=== PATIENT | female | born 1970 | race Caucasian/White ===

== ENCOUNTER 2021-03-03 11:50 | Observation (INO) | payer SELFPAY ==
[2021-03-03 12:27] LABS: #Eosinphils 0.1 10x3/uL (0.0-0.5); #Monocytes 0.5 10x3/uL (0.0-1.1); #Neutrophils 2.9 10x3/uL (1.5-8.4); %Basophils 0.5 % (0.0-2.0); %Eosinophils 1.4 % (0.0-6.0); %Lymphocytes 40.3 % (18.0-47.0); %Monocytes 8.5 % (0.0-10.0); Hemoglobin 15.9 g/dL (12.0-15.5); Mean Corpuscular HGB CONC 32.9 g/dL (32.0-36.0); Mean Corpuscular Hemoglobin 29.4 pg (27.0-33.0); Mean Corpuscular Volume 89.6 fl (81.6-98.3); Mean Platelet Volume 11.5 fl (7.4-10.4); Platelet Count 228 10x3/uL (150-450); RBC Distribution Width 12.7 % (11.5-14.5); White Blood Cell (WBC) Count 5.9 10x3/uL (3.5-10.5)
[2021-03-03 12:40] LABS: ALT (SGPT) 17 U/L (8-55); AST (SGOT) 17 U/L (5-34); Albumin 4.7 g/dL (3.5-5.0); Alkaline Phosphatase 82 U/L (40-110); Anion Gap 14 mmol/L (10-20); BUN (Urea Nitrogen) 8 mg/dL (9.8-20.1); Bilirubin, Total 0.4 mg/dL (0.2-1.2); Calc. Creatinine Clearance 0 mL/min (70-130); Calcium 9.8 mg/dL (7.8-10.44); Carbon Dioxide 26 mmol/L (22-29); Chloride 104 mmol/L (98-107); Globulin 2.9 g/dL (2.4-3.5); Glucose 86 mg/dL (70-105); Potassium 4.2 mmol/L (3.5-5.1); Protein, Total 7.6 g/dL (6.0-8.3); Sodium 140 mmol/L (136-145)
[2021-03-03] MEDS ORDERED: methylPREDNISolone Sod Succ/PF 125 MG/2 ML VIAL ONE (12:58)
[2021-03-03 13:34] LABS: Actual Bicarbonate (HCO3v) 27 mEq/L (22-28); Base Excess 0.3 mEq/L (-2.0 to +3.0); Calcium, Ionized (venous) 1.19 mmol/L (1.16-1.32); Chloride (VBG) 102 mmol/L (98-106); Hemoglobin (Hb) 16.2 g/dL (11.7-16.0); Potassium (VBG) 4.09 mmol/L (3.70-5.30); Puncture Site Other Site; Sodium 140.4 mmol/L (133-146); pH (venous) 7.35 (7.32-7.43)
[2021-03-03 13:44] LABS: SARS-CoV-2 NAA Rapid Test Not Detected (NotDetected)
[2021-03-03] MEDS ORDERED: Aspirin 325 MG TAB ONE (13:57)
[2021-03-03] MEDS ORDERED: Acetaminophen 325 MG TAB PO PRN (15:46)
[2021-03-03] MEDS ORDERED: Ondansetron ODT 4 MG TAB PO PRN (15:46)
[2021-03-03] MEDS ORDERED: Acetaminophen 650 MG Suppository PR PRN (15:46)
[2021-03-03] MEDS ORDERED: Ondansetron PF 4 MG/2 ML Vial IVP PRN (15:46)
[2021-03-03 16:00] LABS: Troponin I Less than 0.010 ng/mL (< 0.028)
[2021-03-03 16:34] VITALS: BMI 24.7
[2021-03-03 17:33] VITALS: BP 121/75; TEMP 98
[2021-03-03] MEDS ORDERED: Naproxen 500 MG TAB PO SCH (21:00)
[2021-03-04] MEDS ORDERED: FLU VACC QS2021-22(6MOS UP)/PF 60 MCG/0.5 ML SYRINGE IM ONE (09:00)
[2021-03-04] MEDS ORDERED: Aspirin Chewable 81 MG TAB PO SCH (09:00)
== END 2021-03-03 19:50 | disposition home or self-care (01) ==
LOC: CSHERS 11:50 → CSHTELE 15:58
PROVIDERS: ADMIT Internal Medicine; ATTEND Internal Medicine
DX: M48.54XA Collapsed vertebra, not elsewhere classified, thoracic region, initial encounter for fracture (principal); R07.89 Other chest pain; J44.9 Chronic obstructive pulmonary disease, unspecified; F17.210 Nicotine dependence, cigarettes, uncomplicated; Z20.822 Contact with and (suspected) exposure to COVID-19
CPT/HCPCS: 71045; 71275; 80053; 82805; 83690; 83880; 84484; 85025; 85379; 93005; 94640; 94760; 96374; G0378; J2930; J7620; U0002